=== PATIENT | male | born 1995 | race Caucasian/White ===

== ENCOUNTER 2021-07-15 18:56 | Emergency (ER) | payer OTHER, SELFPAY ==
[2021-07-15 19:03] VITALS: BP 153/83; PULSE 81; RESP 18; TEMP 37.2; O2SAT 100
--- NOTE | 2021-07-15 19:09 | ED.SKABFB ---
HPI - Skin/Abscess/Foreign Bdy General Chief complaint: Burn/Smoke Inhalation Stated complaint: burn on left 2 fingers Time Seen by Provider: 07/15/21 19:00 Source: patient, family and RN notes reviewed History of Present Illness HPI narrative: Patient is a 26-year-old male who presents the urgent care with his mother with complaints of a burn to the left thumb and index finger. Patient states that it happened just prior to arrival with a soldering iron. Patient states that he was soldering electronics. Denies of any use of [id number] medication for soothing or pain prior to arrival. Patient did not placed ice on the area. No other acute complaints. No acute distress noted. Patient and mother aware of the plan of care. Some parts of this dictation were generated by voice recognition software and may contain typographical and/or grammatical inaccuracies. Related Data Home Medications Medication Instructions Recorded Confirmed cetirizine [Zyrtec] 10 mg PO DAILY 07/15/21 07/15/21 fluticasone propionate [Flovent 1 puff INHALATION Q12H 07/15/21 07/15/21 HFA] Allergies Allergy/AdvReac Type Severity Reaction Status Date / Time No Known Allergies Allergy Verified 07/15/21 19:07 Review of Systems Review of Systems: CONSTITUTIONAL: Denies fever, chills, or sweats. EYES: Denies visual changes, redness, or discharge. ENT: Denies rhinorrhea, congestion, sore throat, or otalgia. CARDIOVASCULAR: Denies chest pain, palpitations, or edema. RESPIRATORY: Denies cough or dyspnea. GASTROINTESTINAL: Denies abdominal pain, nausea, vomiting, or diarrhea. GENITOURINARY: Denies dysuria or hematuria. SKIN: Reports of a burn to the left thumb and left index finger MUSCULOSKELETAL: Denies back pain, joint pain, or myalgia. NEUROLOGIC: Denies headache, numbness, or weakness. All other systems reviewed are negative, except as documented in HPI. [facility] Comments At the time of my signature, I reviewed and agree with the nursing past medical, surgical, social, and family history. There is no relevant family history pertinent to the patient complaint. Exam Narrative: GENERAL: This is a well-nourished, well-developed patient, in no apparent distress. HEAD: normocephalic, atraumatic. EYES: PERRL. Sclera clear/white. Vision is grossly intact. EARS: External ears normal NOSE: External nose normal with no obvious nasal discharge, nares without redness, no rhinorrhea. THROAT: Mucous membranes moist NECK: Neck supple CARDIOVASCULAR: Regular rate and rhythm without murmurs, gallops, or rubs. RESPIRATORY: Clear to auscultation. Breath sounds equal bilaterally. No wheezes, rales, or rhonchi. SKIN: 1 cm superficial/first-degree burn to the tuft of the left thumb, 1 cm superficial/first-degree burn to the tuft of the left index finger NEURO: awake, alert, and oriented to person, place and time. There were no obvious focal neurologic abnormalities. EXTREMITIES: No clubbing, cyanosis, or edema. Course Vital Signs Vital signs: Vital Signs Temperature 99 F 07/15/21 19:03 Pulse Rate 81 07/15/21 19:03 Respiratory Rate 18 07/15/21 19:03 Blood Pressure 153/83 H 07/15/21 19:03 Pulse Oximetry 100 07/15/21 19:03 Temperature 99 F 07/15/21 19:03 Pulse Rate 81 07/15/21 19:03 Respiratory Rate 18 07/15/21 19:03 Blood Pressure 153/83 H 07/15/21 19:03 Pulse Oximetry 100 07/15/21 19:03 Reviewed-patient is informed that they may have pre-hypertension or hypertension based on a blood pressure reading in the department. I recommend the patient call the primary care provider listed on their discharge instructions or a physician of their choice this week to arrange follow-up for further evaluation of possible pre-hypertension or hypertension. MDM - Skin/Abscess/Foreign Bdy MDM Narrative Medical decision making narrative: Advised the patient to keep the wounds clean with plain Dial soap and water. May cover them with a Band-Aid and
== END 2021-07-15 19:20 | disposition home or self-care (01) ==
PROVIDERS: Emergency Provider Nurse Practitioner Family
DX: T23.142A Burn of first degree of multiple left fingers (nail), including thumb, initial encounter (principal); T31.0 Burns involving less than 10% of body surface; X15.8XXA Contact with other hot household appliances, initial encounter
CPT/HCPCS: 99212; G0463

== ENCOUNTER 2025-02-10 13:47 | Emergency (ER) | payer OTHER, SELFPAY ==
[2025-02-10 13:56] VITALS: BP 130/63; PULSE 85; RESP 16; TEMP 36.6; O2SAT 99
--- NOTE | 2025-02-10 14:09 | ED_ITS ---
HPI - Extremity Problem General Chief complaint: Extremity Problem,Nontraumatic Stated complaint: R ANKLE PAIN Time Seen by Provider: 02/10/25 13:49 Source: patient and RN notes reviewed Mode of arrival: ambulatory Limitations: no limitations History of Present Illness HPI Narrative: 29-year-old male presents to the [facility] complaining of a right ankle injury. He was running a 5K on Sunday when he noticed that he developed pain in his right ankle behind his right calf the next day. He says his pain is primarily located at the proximal part of his Achilles. He denies any specific injury to the right ankle, he denies any swelling, bruising, numbness, tingling, or loss of motor function to the injury. He is able to bear weight but it is uncomfortable and the pain is worse with certain movements such as dorsal flexing or plantar flexing. He said the pain is consistent persistently gotten worse over the last couple days. He has been taking ibuprofen for pain. Related Data Home Medications ?Medication ?Instructions ?Recorded ?Confirmed ?Last Taken ?Type cetirizine 10 mg tablet (Zyrtec) 10 mg PO DAILY 07/15/21 07/15/21 Unknown History fluticasone propionate 110 1 puff inhalation Q12H 07/15/21 07/15/21 Unknown History mcg/actuation HFA aerosol inhaler (Flovent HFA) Allergies Allergy/AdvReac Type Severity Reaction Status Date / Time No Known Allergies Allergy Verified 02/10/25 13:49 Review of Systems Review of Systems: CONSTITUTIONAL: Denies fever, chills, or sweats. EYES: Denies visual changes, redness, or discharge. ENT: Denies rhinorrhea, congestion, sore throat, or otalgia. CARDIOVASCULAR: Denies chest pain, palpitations, or edema. RESPIRATORY: Denies cough or dyspnea. GASTROINTESTINAL: Denies abdominal pain, nausea, vomiting, or diarrhea. GENITOURINARY: Denies dysuria or hematuria. SKIN: Denies rash or itching. MUSCULOSKELETAL: Denies back pain, joint pain, swelling, or myalgia. Positive for right ankle pain. NEUROLOGIC: Denies headache, numbness, or weakness. PSYCHIATRIC: Denies anxiety or depression. All other systems reviewed are negative, except as documented in HPI. [facility] Comments At the time of my signature, I reviewed and agree with the nursing past medical, surgical, social, and family history. There is no relevant family history pertinent to the patient complaint. Exam Narrative: GENERAL: This is a well-nourished, well-developed adult, in no apparent distress. They are non ill-appearing, nontoxic appearing. HEAD: normocephalic, atraumatic. EYES: Sclera clear/white. Vision is grossly intact. EARS: External ears normal, NECK: Neck supple Heart: Regular rate and rhythm. Normal and equal peripheral pulses. RESPIRATORY: No respiratory distress SKIN: warm, Dry, intact with no suspicious lesions or rash, good texture and turgor. NEURO: awake, alert, and oriented to person, place and time. There were no obvious focal neurologic abnormalities. EXTREMITIES: Right ankle/Achilles: Mild tenderness to palpation to the proximal Achilles area. There is no swelling, deformity, bruising, or obvious injury to the area. Parrish's test is negative. The patient is able to dorsiflex and plantar flex with mild discomfort. Right lower extremity is warm, dry, and pink. Capillary refill is less than 2 seconds. Sensation is normal. BACK: Nontender without deformity. Course Course Level of Care: Express Care Visit Vital Signs Vital signs: Vital Signs Temperature 97.8 F 02/10/25 13:56 Pulse Rate 85 02/10/25 13:56 Respiratory Rate 16 02/10/25 13:56 Blood Pressure 130/63 02/10/25 13:56 Pulse Oximetry 99 02/10/25 13:56 Temperature 97.8 F 02/10/25 13:56 Pulse Rate 85 02/10/25 13:56 Respiratory Rate 16 02/10/25 13:56 Blood Pressure 130/63 02/10/25 13:56 Pulse Oximetry 99 02/10/25 13:56 Reviewed MDM - Extremity (Nontraumatic) MDM Narrative Medical decision making narrative: Symptoms are likely related to an Achilles tendinitis in the proximal part. There is a low suspicion for a tendon rupture, Parrish test was negative to the right ankle, patient is able to plantar flex and dorsiflex however there is some discomfort with those movements. Patient is able to bear weight and ambulate on the affected extremity. There is no obvious injury to the right ankle, no swelling, no deformity, no bruising, no obvious injury. No bony tenderness noted, therefore x-ray was not indicated at this time. Conservative therapy discussed, patent on the rice method. Discussed physical exam findings. Advised signs/symptoms to go to the ER. Pt is appropriate for outpt treatment and f/u. Differential Diagnosis Differential diagnosis: Likely other (Ankle fracture, Achilles tendon rupture, tendinitis) Critical Care Time Critical Care Time Critical Care Time: No Discharge Plan Discharge Clinical Impression: Tendinitis of ankle Patient Disposition: Home, Self-Care Condition: Stable Instructions: Achilles Tendinitis (ED) Additional Instructions: Rest and elevate the right leg; bear weight as tolerated. Apply ice 15-20 minute intervals several times a day Keep it wrapped with GOVIND or use a soft ankle splint? Motrin 600mg -800mg every 8 hours, alternate with Tylenol 1000mg every 8 hours as needed Follow up with your primary care provider as needed? If pain persist after 10 days after conservative therapy please follow-up with your PCP or an orthopedist for further evaluation. He had been referred to an orthopedist. If you develop worsening pain or you are unable to bear weight on the right ankle please go to the emergency department for further evaluation. You may contact the physician liaison number to get established with a primary care provider at [phone] Patient Language: Uzbek Prescriptions: No Action cetirizine [Zyrtec] 10 mg Tablet 10 mg PO DAILY Flovent HFA 110 mcg/actuation Hfa Aerosol Inhaler 1 puff INHALATION Q12H Follow-up/Referrals: Marty العراقي MD [Physician] - PHYSICIAN,[employer] [Primary Care Provider] - Time of Disposition: 14:12
== END 2025-02-10 14:19 | disposition home or self-care (01) ==
DX: M76.61 Achilles tendinitis, right leg (principal); Z86.16 Personal history of COVID-19
CPT/HCPCS: 99212; G0463